=== PATIENT | female | born 1975 | race Caucasian/White ===

== ENCOUNTER → 2020-09-04 12:15 | Outpatient (BNVA) | payer BC, SELFPAY | PROVIDERS: Family Provider Family Medicine; PCP Family Medicine; Visit Provider Obstetrics & Gynecology | DX: Z12.4 Encounter for screening for malignant neoplasm of cervix (principal); F32.81 Premenstrual dysphoric disorder | CPT/HCPCS: 88175 ==

== ENCOUNTER 2020-09-19 08:23 | Outpatient (CLI) | payer BC, SELFPAY ==
--- NOTE | 2020-09-19 08:32 | MM_ITS ---
WS: [id number] BILATERAL DIGITAL SCREENING MAMMOGRAPHY WITH CAD CLINICAL INFORMATION: SCREENING HISTORY: Screening mammogram. No current complaints. COMPARISON: TECHNIQUE: Bilateral CC and MLO views. FINDINGS: Scattered fibroglandular densities bilaterally. No suspicious focal mass, asymmetry, calcifications, or architectural distortion. No evidence of malignancy. Stable intramammary lymph nodes right breast. Lucent centered calcification left breast. MM/[place] [id number] IMPRESSION: BI-RADS: 2-Benign FOLLOW UP: 1 Year Follow-up Recommend return to annual screening mammography.
== END 2020-09-19 08:24 | disposition home or self-care (01) ==
LOC: RADSHAW 08:28
PROVIDERS: Family Provider Family Medicine; PCP Family Medicine; Visit Provider Obstetrics & Gynecology
DX: Z12.31 Encounter for screening mammogram for malignant neoplasm of breast (principal)
CPT/HCPCS: 77067

== ENCOUNTER 2022-05-14 09:16 | Outpatient (CLI) | payer BC, SELFPAY ==
--- NOTE | 2022-05-14 09:29 | MM_ITS ---
WS: [id number] BILATERAL SCREENING DIGITAL TOMOSYNTHESIS MAMMOGRAM WITH CAD HISTORY: SCREENING COMPARISON: 09/19/2020 and 11/10/2018 Bilateral CC and MLO views with tomosynthesis and synthetic mammography submitted. Computer aided det ection analyzed. Breast composition: There are scattered areas of fibroglandular density. No suspicious masses, microc alcifications or architectural distortion. Benign stable intramammary lymph nodes upper outer quadran t of the RIGHT breast at the axillary tail. MM/[place] [id number] IMPRESSION: BI-RADS: 2-Benign FOLLOW UP: 1 Year Follow-up
== END 2022-05-14 09:17 | disposition home or self-care (01) ==
LOC: RAD 09:17
PROVIDERS: PCP Family Medicine; Visit Provider Family Medicine
DX: Z12.31 Encounter for screening mammogram for malignant neoplasm of breast (principal)
CPT/HCPCS: 77063; 77067

== ENCOUNTER 2023-05-26 07:52 | Outpatient (CLI) | payer BC, SELFPAY ==
--- NOTE | 2023-05-26 08:19 | MM_ITS ---
WS: [id number] BILATERAL SCREENING DIGITAL TOMOSYNTHESIS MAMMOGRAM WITH CAD HISTORY: Z12.39 - Encounter for other screening for malignant neop... COMPARISON: 05/14/2022, 09/19/2020 Bilateral CC and MLO views with tomosynthesis and synthetic mammography submitted. Computer aided det ection analyzed. Breast composition: There are scattered areas of fibroglandular density. No suspicious masses, microc alcifications or architectural distortion. Benign calcification upper outer quadrant LEFT breast. IMPRESSION: MM/[place] [id number] BI-RADS: 2-Benign FOLLOW UP: 1 Year Follow-up
== END 2023-05-26 07:53 | disposition home or self-care (01) ==
PROVIDERS: PCP Family Medicine; Visit Provider Nurse Practitioner Women's Health
DX: Z12.31 Encounter for screening mammogram for malignant neoplasm of breast (principal)
CPT/HCPCS: 77063; 77067

== ENCOUNTER → 2023-06-03 11:11 | Outpatient (BNVA) | payer BC, SELFPAY | PROVIDERS: PCP Family Medicine; Visit Provider Family Medicine | DX: F32.81 Premenstrual dysphoric disorder (principal); R00.2 Palpitations; Z00.00 Encounter for general adult medical examination without abnormal findings | CPT/HCPCS: 80053; 80061; 84443 ==

== ENCOUNTER → 2024-01-27 11:21 | Outpatient (BNVA) | payer BC, SELFPAY | PROVIDERS: PCP Family Medicine; Visit Provider Nurse Practitioner Women's Health | DX: Z12.4 Encounter for screening for malignant neoplasm of cervix (principal) | CPT/HCPCS: 87624 ==

== ENCOUNTER 2024-08-10 07:55 | Outpatient (CLI) | payer BC, SELFPAY ==
--- NOTE | 2024-08-10 08:03 | MM_ITS ---
WS: [id number] VIEWS: MLO and CC views both breasts. 3D digital tomosynthesis is also included in this exam. Comparison made with prior exam of 05/14/2022, 05/26/2023.. Findings: There are scattered areas of fibroglandular density. No new mass, tumor calcification or architectural distortion. MM/MM scr BI tomosynthesis [id number] Impression: BI-RADS: 2 - Benign. FOLLOW-UP: 1 Year Follow-up This mammogram was also analyzed by the Computer Aided Detection System R2 Imag e Inserting Operator.
== END 2024-08-10 07:56 | disposition home or self-care (01) ==
PROVIDERS: PCP Family Medicine; Visit Provider Nurse Practitioner Women's Health
DX: Z12.31 Encounter for screening mammogram for malignant neoplasm of breast (principal); R92.323 Mammographic fibroglandular density, bilateral breasts
CPT/HCPCS: 77063; 77067

== ENCOUNTER → 2024-12-06 15:33 | Outpatient (BNVA) | payer OTHER, SELFPAY | PROVIDERS: PCP Family Medicine; Visit Provider Family Medicine | DX: F41.1 Generalized anxiety disorder (principal); M65.90 Unspecified synovitis and tenosynovitis, unspecified site | CPT/HCPCS: 80053; 82607; 83735 ==

== ENCOUNTER 2024-12-07 09:36 | Outpatient (CLI) | payer OTHER, SELFPAY ==
--- NOTE | 2024-12-07 09:43 | XRR_ITS ---
PROCEDURE INFORMATION: Exam: XR Left Hip Exam date and time: 12/07/2024 10:23 AM Age: 49 years old Clinical indication: Hip pain; Left hip; Left posterior hip and si joint pain x 1 yr, no known injury; Additional info: Left si joint pain TECHNIQUE: Imaging protocol: Radiologic exam of the left hip. Views: 2 or 3 views hip with pelvis when performed. COMPARISON: CR XR sacroiliac jts m 3V [id number] 12/07/2024 10:23 AM FINDINGS: Bones/joints: Unremarkable. No acute fracture. Soft tissues: Unremarkable. XR/XR hip LT 2-3V wo/w pel* [id number] IMPRESSION: No acute findings.
--- NOTE | 2024-12-07 09:43 | XRR_ITS ---
PROCEDURE INFORMATION: Exam: XR Bilateral Sacroiliac Joints Exam date and time: 12/07/2024 10:23 AM Age: 49 years old Clinical indication: Pain in coccyx area; Left posterior hip and si joint pain x 1 yr, no known injury; Additional info: Left hip pain TECHNIQUE: Imaging protocol: XR bilateral XR of the sacroiliac joints. Views: 3 or more views. COMPARISON: CR XR hip LT 2-3V wo/w pel* [id number] 12/07/2024 10:23 AM FINDINGS: Bones/joints: Normal. No acute fracture. Soft tissues: Normal. XR/XR sacroiliac jts m 3V [id number] IMPRESSION: No acute findings.
== END 2024-12-07 09:37 | disposition home or self-care (01) ==
PROVIDERS: PCP Family Medicine; Visit Provider Family Medicine
DX: M25.552 Pain in left hip (principal)
CPT/HCPCS: 72202; 73502

== ENCOUNTER 2025-06-27 08:29 | Outpatient (CLI) | payer SELFPAY ==
--- NOTE | 2025-06-27 08:45 | MR_ITS ---
WS: [id number] MRI LUMBAR SPINE NONCONTRAST TECHNIQUE: Sagittal T1, T2 and STIR imaging. Axial T1 and T2 imaging. CLINICAL INFORMATION: chronic back pain COMPARISON: None. FINDINGS: Mild lumbar curve. No acute compression. Grade 1 anterolisthesis L4 on L5. Severe central canal stenosis L4-5 L1-L2: Normal L2-L3: Mild annular bulging. Narrowing of the subarticular recess bilaterally. Mild facet arthropathy. Slight retrolisthesis. Mild LEFT foraminal narrowing. L3-L4: Mild annular bulging. Slight effacement of ventral thecal sac. Slight narrowing LEFT subarticular recess. Mild facet arthropathy. Mild LEFT foraminal narrowing. L4-L5: Grade 1 anterolisthesis. Disc bulging combination with facet arthropathy ligamentum flavum hypertrophy results in severe central canal stenosis. Impingement of traversing L5 nerve roots bilaterally. Mild bilateral foraminal narrowing. Tiny facet effusions. L5-S1: Mild disc bulging with a tiny annular fissure. Impingement on the traversing LEFT greater than RIGHT S1 nerve roots. Moderate facet arthropathy. Mild LEFT foraminal narrowing Visualized pelvic bony structures: Normal. Paravertebral soft tissues: Normal. MR/MR lumbar spine wo con* [id number] IMPRESSION: 1. Severe central canal stenosis L4-5 with grade 1 anterolisthesis and combina tion with disc bulging and facet arthropathy and ligamentum flavum hypertrophy. Recommend spine surgery consultation. Impingement traversing L5 nerve roots bi laterally 2. Small central protrusion L5-S1 with a tiny annular fissure. Impingement of traversing LEFT greater than RIGHT S1 nerve roots.
== END 2025-06-27 08:30 | disposition home or self-care (01) ==
LOC: RAD 08:30
PROVIDERS: PCP Family Medicine; Visit Provider Family Medicine
DX: G89.29 Other chronic pain (principal); M48.061 Spinal stenosis, lumbar region without neurogenic claudication; M51.27 Other intervertebral disc displacement, lumbosacral region
CPT/HCPCS: 72148